=== PATIENT | male | born 1975 ===

== ENCOUNTER 2019-02-22 18:09 | Inpatient (IN) | payer OTHER ==
[~2019-02-22] VITALS: Ht 175.3 cm; Wt 86.2 kg
[2019-02-22] VITALS (7 sets, daily range): BP systolic 100–134; BP diastolic 54–75
--- NOTE | 2019-02-22 18:54 | ER.PDOC ---
General Chief Complaint: Abdomen Pain Stated Complaint: ABDOMINAL PAIN Time seen by MD: 18:46 Source: patient Exam Limitations: language barrier History of Present Illness Initial Comments c/o abdominal pain since 2pm today, denies n/v, has had 2 loose stools Timing/Duration: 4-6 hours Severity/Quality: moderate, sharpness, stabbing Radiation: RLQ Associated Symptoms: diarrhea (x2) Exacerbated by: nothing Relieved By: nothing Allergies: Coded Allergies: No Known Drug Allergies (Verified Allergy, Unknown, 02/22/19) Vital Signs First Vital Signs Date Time Temp Pulse Resp B/P (MAP) Pulse Ox O2 Delivery O2 Flow Rate FiO2 02/22/19 18:09 99.7 16 16 96 Room Air 02/22/19 18:32 134/75 (94) Last Vital Signs Date Time Temp Pulse Resp B/P (MAP) Pulse Ox O2 Delivery O2 Flow Rate FiO2 02/22/19 18:32 99.7 83 16 134/75 (94) 96 Room Air Past Medical History Medical History: no pertinent history Surgical History: no surgical history Social History Smoking: cigarettes, greater than 1 pack/day Alcohol Use: none Drug Use: none Constitutional: no symptoms reported EENTM: no symptoms reported Respiratory: no symptoms reported Cardiovascular: no symptoms reported Gastrointestinal: see HPI Musculoskeletal: no symptoms reported Skin: no symptoms reported All Other Systems: Reviewed and Negative Physical Exam General Appearance: Mild Distress (writhing on the bed, appears acutely uncomfortable) Respiratory: chest non-tender, lungs clear, normal breath sounds, no respiratory distress Cardiovascular: Regular Rate, Rhythm, No Edema Gastrointestinal: Hypoactive bowel sounds, Soft, Tenderness (diffusely TTP with worst pain at RLQ; no rebound) Extremities: Normal Range of Motion, Non-Tender Skin: Normal Color, Warm/Dry Lymphatic: No Adenopathy Results/Orders Results/Orders Orders - ROB BREWER DO Cbc With Auto Diff (02/22/19 18:52) Comprehensive Metabolic Panel (02/22/19 18:52) Amylase (02/22/19 18:52) Lipase (02/22/19 18:52) Helicobacter Pylori (02/22/19 18:52) Ct Abd/Pel With Iv Contrast (02/22/19 18:52) Urinalysis (02/22/19 18:52) Saline Lock (02/22/19 18:52) Npo Now (02/22/19 19:00) Ketorolac Tromethamine (Toradol) (02/22/19 19:00) Ketorolac Tromethamine (Toradol) (02/22/19 19:24) Insulin Regular, Human (Humulin R) (02/22/19 21:00) Vital Signs Date Time Temp Pulse Resp B/P (MAP) Pulse Ox O2 Delivery O2 Flow Rate FiO2 02/22/19 18:32 99.7 83 16 134/75 (94) 96 Room Air 02/22/19 18:09 99.7 83 16 02/22/19 18:09 99.7 16 16 96 Room Air Administered Medications Medications (Trade) Dose Ordered Sig/Tobias Route PRN Reason Start Time Stop Time Status Last Admin Dose Admin Ketorolac Tromethamine (Toradol) 30 mg STAT STAT IV 02/22/19 19:00 02/22/19 19:01 UNV 02/22/19 19:37 30 MG Laboratory Tests Test 02/22/19 19:00 02/22/19 20:40 White Blood Count 20.3 10^3/uL (4.5-11.0) H Red Blood Count 5.20 10^6/uL (4.50-5.90) Hemoglobin 16.2 g/dL (13.9-16.3) Hematocrit 47.4 % (37.0-53.0) Mean Corpuscular Volume 91.2 fL (78-100) Mean Corpuscular Hemoglobin 31.2 pg (26-34) Mean Corpuscular Hemoglobin Concent 34.2 g/dL (33-37) Red Cell Distribution Width 12.7 % (11.5-14.5) Platelet Count 371 10^3/uL (150-400) Mean Platelet Volume 9.8 fL (7.8-11.0) Neutrophils (%) (Auto) 82.5 % (41.0-85.0) Lymphocytes (%) (Auto) 11.4 % (24.0-44.0) L Monocytes (%) (Auto) 5.0 % (5.0-12.0) Neutrophils # (Auto) 16.8 10^3/uL (1.8-7.7) H Lymphocytes # (Auto) 2.3 10^3/uL (1.0-4.8) Monocytes # (Auto) 1.0 10^3/uL (0.3-0.8) H Absolute Immature Granulocyte (auto 0.05 10^3 u/L (0-2) Immature Granulocytes % 0.20 % (0.00-0.50) Eosinophils % 0.8 % (0.0-5.0) Basophils % 0.1 % (0.0-0.2) Basophils # 0.0 10^3/uL (0.0-0.1) Eosinophil Count 0.2 10^3/uL (0.0-0.2) Sodium Level 137 mmol/L (132-145) Potassium Level 3.5 mmol/L (3.6-5.2) L Chloride Level 100.0 mmol/L (96-109) Carbon Dioxide Level 27.4 mmol/L (20.0-32) Anion Gap 13.1 Blood Urea Nitrogen 11 mg/dL (7-18) Creatinine 0.87 mg/dL (0.59-1.40) Estimated GFR () 115.3 (>/=60) BUN/Creatinine Ratio 12.0 Glucose Level 349 mg/dL (70-110) H Calcium Level 9.4 mg/dL (8.4-10.5) Total Bilirubin 0.4 mg/dL (0.2-1.0) Aspartate Amino Transferase (AST) 21 U/L (0-35) Alanine Aminotransferase (ALT) 31 U/L (12-78) Alkaline Phosphatase 112 U/L (50-136) Total Protein 7.3 g/dL (6.4-8.2) Albumin 3.7 g/dL (3.4-5.0) Globulin 3.6 Amylase Level 26 U/L (25-115) Lipase 110 U/L (114-286) L Helicobacter pylori Screen NEGATIVE (NEGATIVE) Urine Collection Type UNKNOWN Urine Color YELLOW (YELLOW) Urine Appearance CLEAR (CLEAR) Urine Bilirubin NEGATIVE MG/DL (NEGATIVE) Urine Ketones 15 mg/dL (NEGATIVE) H Urine Specific [place] 1.010 (1.005-1.035) Urine pH 7 (5.0-6.0) Urine Protein NEGATIVE (NEGATIVE) Urine Urobilinogen NORMAL (NEGATIVE) Urine Nitrate NEGATIVE (NEGATAIVE) Urine Leukocyte Esterase NEGATIVE (NEGATIVE) Urine Blood NEGATIVE (NEGATIVE) Urine Glucose 1000 (NEGATIVE) H Progress Progress WBC 20, Gluc 349 EKG/XRAY/CT/US CT Comments: acute appendicitis without perforation or abscess Consult/PCP Time Consult/PCP Called: 21:36 Consult/PCP: Dr. Negro will admit; Dr. Garcia on his way in Course Vitals & review Data Vital Sign - Last 24 Hours 02/22/19 02/22/19 02/22/19 18:09 18:09 18:32 Temp 99.7 99.7 99.7 Pulse 16 83 83 Resp 16 16 16 B/P (MAP) 134/75 (94) Pulse Ox 96 96 O2 Delivery Room Air Room Air Laboratory Tests Test 02/22/19 19:00 02/22/19 20:40 White Blood Count 20.3 10^3/uL Red Blood Count 5.20 10^6/uL Hemoglobin 16.2 g/dL Hematocrit 47.4 % Mean Corpuscular Volume 91.2 fL Mean Corpuscular Hemoglobin 31.2 pg Mean Corpuscular Hemoglobin Concent 34.2 g/dL Red Cell Distribution Width 12.7 % Platelet Count 371 10^3/uL Mean Platelet Volume 9.8 fL Neutrophils (%) (Auto) 82.5 % Lymphocytes (%) (Auto) 11.4 % Monocytes (%) (Auto) 5.0 % Neutrophils # (Auto) 16.8 10^3/uL Lymphocytes # (Auto) 2.3 10^3/uL Monocytes # (Auto) 1.0 10^3/uL Absolute Immature Granulocyte (auto 0.05 10^3 u/L Immature Granulocytes % 0.20 % Eosinophils % 0.8 % Basophils % 0.1 % Basophils # 0.0 10^3/uL Eosinophil Count 0.2 10^3/uL Sodium Level 137 mmol/L Potassium Level 3.5 mmol/L Chloride Level 100.0 mmol/L Carbon Dioxide Level 27.4 mmol/L Anion Gap 13.1 Blood Urea Nitrogen 11 mg/dL Creatinine 0.87 mg/dL Estimated GFR () 115.3 BUN/Creatinine Ratio 12.0 Glucose Level 349 mg/dL Calcium Level 9.4 mg/dL Total Bilirubin 0.4 mg/dL Aspartate Amino Transf (AST/SGOT) 21 U/L Alanine Aminotransferase (ALT/SGPT) 31 U/L Alkaline Phosphatase 112 U/L Total Protein 7.3 g/dL Albumin 3.7 g/dL Globulin 3.6 Amylase Level 26 U/L Lipase 110 U/L Helicobacter pylori Screen NEGATIVE Urine Collection Type UNKNOWN Urine Color YELLOW Urine Appearance CLEAR Urine Bilirubin NEGATIVE MG/DL Urine Ketones 15 mg/dL Urine Specific [place] 1.010 Urine pH 7 Urine Protein NEGATIVE Urine Urobilinogen NORMAL Urine Nitrate NEGATIVE Urine Leukocyte Esterase NEGATIVE Urine Blood NEGATIVE Urine Glucose 1000 Current Medications Medications (Trade) Dose Ordered Sig/Tobias PRN Reason Start Time Stop Time Status Last Admin Ketorolac Tromethamine (Toradol) 30 mg STAT STAT 02/22/19 19:00 02/22/19 19:01 UNV 02/22/19 19:37 O2 Sat by Pulse Oximetry: 96 Departure Time of Disposition: 21:37 Disposition: ADMITTED INPATIENT Impression: Primary Impression: Acute appendicitis Condition: Stable Referrals: PCP,UNKNOWN (PCP) PRIMARY CARE PROVIDER Duration or Time Spent with Pa: 3 hours Problem Qualifiers Primary Impression: Acute appendicitis Acute appendicitis type: with localized peritonitis Appendicitis gangrene presence: without gangrene Appendicitis perforation presence: without perforation Appendicitis abscess presence: without abscess Qualified Codes: K35.30 - Acute appendicitis with localized peritonitis, without perforation or gangrene ROB BREWER DO Feb 22, 2019 18:54
[2019-02-22] MEDS ORDERED: TORADOL IV STA (19:00)
[2019-02-22 19:04] LABS: BASOPHIL % 0.1 % (0.0-0.2); EOSINOPHIL # 0.2 10^3/uL (0.0-0.2); EOSINOPHIL % 0.8 % (0.0-5.0); HEMOGLOBIN 16.2 g/dL (13.9-16.3); LYMPHOCYTES # 2.3 10^3/uL (1.0-4.8); LYMPHOCYTES % 11.4 % (24.0-44.0); MEAN CELL HGB 31.2 pg (26-34); MEAN CELL HGB CONCENTRATION 34.2 g/dL (33-37); MEAN CORP VOLUME 91.2 fL (78-100); MEAN PLATELET VOLUME 9.8 fL (7.8-11.0); NEUTROPHIL # 16.8 10^3/uL (1.8-7.7); NEUTROPHILS % 82.5 % (41.0-85.0); RED CELL DISTRIBUTION WIDTH 12.7 % (11.5-14.5); WHITE BLOOD CELL 20.3 10^3/uL (4.5-11.0)
[2019-02-22 19:22] LABS: CALCIUM 9.4 mg/dL (8.4-10.5); CARBON DIOXIDE 27.4 mmol/L (20.0-32)
[2019-02-22] MEDS ORDERED: TORADOL ONE (19:24)
[2019-02-22 20:46] LABS: BILIRUBIN,URINE NEGATIVE (NEGATIVE); UROBILINOGEN,URINE NORMAL (NEGATIVE)
[2019-02-22 20:48] LABS: APPEARANCE,URINE CLEAR (CLEAR); UA COLOR YELLOW (YELLOW)
[2019-02-22] MEDS ORDERED: HUMULIN R SQ ONE (21:00)
--- NOTE | 2019-02-22 21:29 | DIREP ---
PROCEDURE:CT ABDOMEN/PELVIS W/ CONTRAST COMPARISON:None. INDICATIONS:abdominal pain TECHNIQUE:Axial images were created through the abdomen and pelvis with non-ionic intravenous contrast material. Oral contrast was administered. Sagittal and coronal reconstructions were performed from source images. FINDINGS: LUNG BASES:Trace dependent ground-glass opacities. LIVER:Normal. No significant liver lesions are identified. BILIARY:Normal. No visible dilatation or calcification. PANCREAS:Normal. No lesion, fluid collection, ductal dilatation, or atrophy. SPLEEN:Normal. No enlargement or focal lesion. ADRENALS:Normal. No mass or enlargement. URINARY TRACT:Normal. No focal lesions or hydronephrosis. There is a small cyst in the left kidney. AORTA/VASCULAR:Normal. No aneurysm. RETROPERITONEUM:Normal. No mass or adenopathy. BOWEL/MESENTERY:The appendix is not thickened and measures 1 cm in diameter with mild stranding associated with it. There is no evidence of perforation or abscess formation. Small bowel is opacified with oral contrast and is normal caliber. Terminal ileum is normal. There is oral contrast seen within the right side of the colon. ABDOMINAL WALL:Normal. No mass or hernia. PELVIC ORGANS:Normal. No visible mass. Pelvic organs appropriate for patient age. BONES:Small posterior endplate osteophyte of L5 the does result in significant narrowing of the central canal at the L5-S1 level. OTHER:Negative. CONCLUSION: 1. Acute appendicitis. No evidence of perforation or abscess formation. 2. This report was called by telephone at 9:24 pm on February 22, 2019 to nurse Marilu who will notify Dr. Divine Gastelum Dictated by: Peter Knapp MD on 02/22/2019 at 09:22 PM
--- NOTE | 2019-02-22 21:33 | NUR ---
CONSULT DR BREWER ON PHONE WITH DR WAYNE REGARDING PATIENT.
[2019-02-22] MEDS ORDERED: NS 100ML 100 ML IV ONE (21:40)
--- NOTE | 2019-02-22 21:49 | NUR ---
DR WAYNE IN WITH PATIENT
[2019-02-22] MEDS: ZOSYN 3.375 GM 3.375 GM in NS 100ML 100 ML IV SCH (21:58)
[2019-02-22] MEDS ORDERED: NS 1000ML 1,000 ML IV ONE (22:00)
[2019-02-22] MEDS ORDERED: DEXTROSE 50%-WATER SYRINGE IV PRN (23:30)
[2019-02-22] MEDS ORDERED: MORPHINE SULFATE IV PRN (23:30)
[2019-02-22] MEDS ORDERED: LACTATED RINGERS 1,000 ML IV SCH (23:30)
[2019-02-22] MEDS: LACTATED RINGERS 1,000 ML IV SCH (23:37)
[2019-02-22] MEDS: LOVENOX SQ SCH (23:38)
[2019-02-22] MEDS: PEPCID IV SCH (23:38)
[2019-02-23] VITALS (9 sets, daily range): BP systolic 93–117; BP diastolic 27–75
--- NOTE | 2019-02-23 03:50 | PCM.EKG ---
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
[2019-02-23 05:15] LABS: BASOPHIL % 0.1 % (0.0-0.2); EOSINOPHIL # 0.1 10^3/uL (0.0-0.2); EOSINOPHIL % 0.7 % (0.0-5.0); HEMOGLOBIN 15.1 g/dL (13.9-16.3); LYMPHOCYTES # 3.5 10^3/uL (1.0-4.8); LYMPHOCYTES % 18.7 % (24.0-44.0); MEAN CELL HGB 31.1 pg (26-34); MEAN CORP VOLUME 91.4 fL (78-100); MEAN PLATELET VOLUME 9.9 fL (7.8-11.0); MONOCYTES # 1.3 10^3/uL (0.3-0.8); NEUTROPHIL # 13.9 10^3/uL (1.8-7.7); NEUTROPHILS % 73.2 % (41.0-85.0); RED CELL DISTRIBUTION WIDTH 12.8 % (11.5-14.5); WHITE BLOOD CELL 18.9 10^3/uL (4.5-11.0)
--- NOTE | 2019-02-23 05:19 | CNH ---
DATE OF CONSULTATION: 02/22/2019 CHIEF COMPLAINT: Appendicitis. HISTORY OF PRESENT ILLNESS: This is a 43-year-old male who was brought to our facility from an outside EMS service. Per discussion with the patient and then subsequent confirmation using the language line service, he had onset of abdominal pain earlier today. No nausea or vomiting. He did have chills at home. The pain was burning and crampy and became so severe he could not tolerate it. In the Emergency Room, he was evaluated and had an elevated white count. CT was positive, and he had elevated glucose. 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 Only home meds he takes is [id number] multivitamin. PAST MEDICAL HISTORY: He denies. PAST SURGICAL HISTORY: Denies. ALLERGIES: No known drug allergies. SOCIAL HISTORY: Positive for smoked tobacco for 20 years, positive for alcohol consumption. Formerly denies illicit drug use. FAMILY HISTORY: Essentially noncontributory. REVIEW OF SYSTEMS: CONSTITUTIONAL: Seasonal allergies: He denies any runny nose or cough. CARDIOVASCULAR: He denies any chest pain, though he does admit to occasional shortness of breath with activity. PULMONARY: He denies cough and does have shortness of breath with exertion on occasion, but not frequently. ABDOMEN: As per HPI. NEUROLOGIC: Denies any seizures or blackouts, though he does admit to some occasional dizziness that is intermittent and not frequent. PHYSICAL EXAMINATION: VITAL SIGNS: Stated height per patient is 5 feet 9 inches, stated weight is 180 pounds, pulse per chart is 88, the blood pressure while I was in the room is 115/69, his temperature noted in the ER was 99.7 and repeat was 99.0, respiratory rate is 16. HEENT: Normocephalic, atraumatic with pink mucous membranes. NECK: Supple and soft. Trachea is midline. GENERAL: This is a healthy, pleasant, alert and oriented, no acute distress. HEART: Has regular rate and rhythm. LUNGS: Clear to auscultation bilaterally. ABDOMEN: The bowel sounds are positive. He has noticeable tenderness in the right lower quadrant. VASCULAR: He has positive pulses x 4. NEUROLOGIC: No focal findings. Cranial nerves 2-12 are grossly intact. SKIN AND INTEGUMENTARY: Warm and dry. LABORATORY STUDIES: White count 20.3, hemoglobin 16.2, platelet count 371. Chemistry shows BUN of 11, creatinine of 0.87. Blood sugar is 349. Lipase is 110, potassium is 3.5. PT is 9.3, PTT is 24.4. Serology, H. pylori is negative. Urinalysis shows specific gravity 1.010 with 1000 of glucose on confirmatory strip. IMAGING STUDIES: CT scan does show changes consistent with acute appendicitis. There were no signs of perforation on the CAT scan. SURGICAL ASSESSMENT: 1. Acute appendicitis. 2. Hyperglycemia without previous diagnosis of diabetes. 3. Clinical dehydration. PLAN: 1. The patient is seen and examined. The chart is reviewed. 2. Initially, I consider taking the patient to surgery; however, with elevated blood glucose and white count, it seems amenable to aggressively hydrate him, give the hospitalist the time to correct his biochemical abnormalities with the intention of improving long-term outcome. The patient has received IV fluid, insulin and IV antibiotics. 3. However, after some discussion with the patient and utilization of the language line service dish technician #[id number], we subsequently involved the patient's as a third alliance party to the call. There was a prolonged discussion by the patient and his . They have concerns regarding the financial implications of surgery, and I have preferred delay in consenting to operation at this point, however, they have agreed for him to stay the night, get the fluids in the antibiotics and see how he feels in the morning, but they are very clear and they verbalized that they would like to talk to someone from the business office prior to surgery. I have explained to the patient and his using the language line service that they cannot be made to leave. They have the right to stay or leave at their discretion. They have accepted complications, and I recommend that he stay and have surgical intervention in an effort to improve his healing and decrease the length of recovery time. Anthony Garcia DO DR: PAT/kavya JOB# [id number]
[2019-02-23] MEDS ORDERED: NS 100ML 100 ML IV ONE (05:48)
[2019-02-23] MEDS: LACTATED RINGERS 1,000 ML IV SCH ×3 (05:50→21:15)
[2019-02-23] MEDS: ZOSYN 3.375 GM 3.375 GM in NS 100ML 100 ML IV SCH ×3 (05:55→17:50)
[2019-02-23 05:59] LABS: CALCIUM 8.3 mg/dL (8.4-10.5); CARBON DIOXIDE 26.1 mmol/L (20.0-32)
--- NOTE | 2019-02-23 06:00 | NUR ---
pt wiped with surgical wipes complete linen change.
[2019-02-23] MEDS ORDERED: EXPAREL 266 MG/20 ML VIAL IJ ONE (07:00)
[2019-02-23] MEDS ORDERED: SODIUM CHLORIDE IR ONE (07:02)
[2019-02-23] MEDS ORDERED: GENTAMICIN 80 MG/NS 100 ML PB 100 ML IV ONE (07:02)
[2019-02-23] MEDS ORDERED: SODIUM CHLORIDE IRR BAG 1,000 ML ONE (07:02)
[2019-02-23] MEDS ORDERED: ZEMURON IV ONE (07:03)
[2019-02-23] MEDS ORDERED: LIDOCAINE 2% VIAL ONE (07:03)
[2019-02-23] MEDS ORDERED: QUELICIN ONE (07:03)
[2019-02-23] MEDS ORDERED: SUBLIMAZE ONE (07:04)
[2019-02-23] MEDS ORDERED: LACTATED RINGERS 1,000 ML ONE (07:04)
[2019-02-23] MEDS ORDERED: DIPRIVAN IV ONE (07:04)
[2019-02-23] MEDS ORDERED: MIDAZOLAM HCL 1 MG/ML VIAL ONE (07:05)
[2019-02-23] MEDS ORDERED: TORADOL ONE (07:05)
[2019-02-23] MEDS ORDERED: DECADRON ONE ×2 (07:05→07:21)
[2019-02-23] MEDS ORDERED: ZOFRAN 4 MG/2 ML VIAL ONE (07:05)
[2019-02-23] MEDS: HUMULIN R SQ SCH ×4 (07:30→21:06)
--- NOTE | 2019-02-23 07:40 | NUR ---
OFF THE FLOOR FOR OR, SBAR GIVEN TO OR NURSES.
[2019-02-23] MEDS ORDERED: KCL 20MEQ/100ML 100 ML IV STA (07:45)
[2019-02-23] MEDS ORDERED: KLOR-CON 10 PO SCH (10:30)
--- NOTE | 2019-02-23 10:30 | NUR ---
DISCHARGE PLAN PATIENT WAS OFF UNIT FOR SURGERY. CM CONTACT INFORMATION AND PCP LIST IS LEFT AT BEDSIDE.
[2019-02-23] MEDS ORDERED: PHENERGAN IV PRN (11:00)
[2019-02-23] MEDS ORDERED: VENTOLIN IH PRN (11:00)
[2019-02-23] MEDS ORDERED: ZOFRAN 4 MG/2 ML VIAL IV PRN (11:00)
[2019-02-23] MEDS ORDERED: SUBLIMAZE IV PRN (11:00)
--- NOTE | 2019-02-23 11:05 | OPH ---
DATE OF SURGERY: PREOPERATIVE DIAGNOSIS: Acute appendicitis. POSTOPERATIVE DIAGNOSIS: Acute appendicitis. SURGEON: Anthony Garcia DO MANUFACTURING SUPERVISOR: OR staff. ANESTHESIA: General by Vitaliy Nino CRNA plus block provided intraoperatively. PROCEDURES PERFORMED: Laparoscopic appendectomy. SPECIMENS: Appendix to path. ESTIMATED BLOOD LOSS: 11 mL. COUNTS: At the completion of the case, the counts were correct per OR staff. DESCRIPTION OF PROCEDURE: The patient is a 43-year-old male, known from previous evaluation. Prior to procedure, informed consent was obtained. At time of procedure, he was taken to the operative suite and placed in supine position. After time-out was completed, general anesthesia was obtained. Bilateral QL block was provided by the Department of Anesthesia. Hodges catheter was inserted by the nursing service and his abdomen was prepped and draped. Supraumbilical incision was created and 5 mm trocar was introduced into the abdomen with Endo camera visualization. Once in the abdomen, pneumoperitoneum was induced with 14 mmHg. Next, under camera visualization, two 5 mm trocars were placed in the left lower quadrant. Attention was directed towards the right lower quadrant. There was noted to be some inflamed peritoneum in the area. The periappendiceal fat was noted to be inflamed as well. The appendix was lifted and the mesoappendix divided using Harmonic scalpel down to the base. The base of the appendix at the cecum appears to be relatively healthy. With good exposure, 2 PDS Endoloops were placed on the base of the appendix at level of the cecum and secured. The tie loop was divided and the appendix was divided. It was removed through the supraumbilical trocar site in EndoCatch bag. Trocars were reinserted. Attention was directed towards the right lower quadrant. There were no signs of bleeding. There was some purulent fluid identified in the right lower quadrant and pelvis which was suctioned. The area was copiously irrigated and the irrigation and suction as well. There were noted to be some inflammatory adhesions associated with the omentum and the gallbladder on inspection and a photograph was obtained. After the pelvis was suctioned and the right lower quadrant was suctioned, a drain was passed in through the inferior trocar site, placed through the pelvis to the right lower quadrant. Secured to point of exit with a nylon suture and closure was pursued. Under camera visualization, remaining trocar sites were removed. The fascia on the supraumbilical incision was closed with 0 Vicryl suture. Two skin incisions were closed with 4-0 Monocryl. The patient was cleaned. Steri-Strips and dressings were applied. Drapes were removed. The appendix was grossly examined and noted to have some inflammatory changes and sent to pathology. Anthony Garcia DO DR: PAT/kavya JOB# [id number] CC: Dillon Negro M.D.
--- NOTE | 2019-02-23 11:25 | NUR ---
BACK TO FLOOR Pt BACK TO FLOOR IN ROOM 303 FROM OR IN HOSPITAL BED ACCOMPANIED BY OR NURSE KATERINE BERNARD AND HIS . SPECIAL VS INITIATED, OFFERED FLUIDS, AND SNACKS TO Pt, Pt TOLERATED WELL.
[2019-02-23] MEDS ORDERED: POTASSIUM CHLORIDE PO STA (11:45)
--- NOTE | 2019-02-23 12:11 | PCM.HP ---
History of Present Illness Reason for Visit: abdominal pain, fever, chills History of Present Illness Patient is a 43 M with no PMH who presents with fever, abdominal hernandez, and chills. Pain was right abdominal pain that was very sharp. Patient brought in by EMS and in ER was found to have acute appendicitis. Patient also had hyperglycemia and patient was started on IV abx, IVF, made NPO and had sugars improved overnight prior to going to OR. Patient underwent laparoscopic appendectomy. Patient is back form OR and I have evaluated. at bedside with patient. Language line used for communication. Patient feels better following surgery. He is tolerating CLD and pain is controlled. Labs, imaging reviewed. Patient denies chest pain, shortness of breath, or any other concerning symptoms. I discussed plan of care with patient/ and they verbalized understanding/agreement. Past Surgical History: Appendectomy Past Social History Smoke: Quit Alcohol: occassional Drugs: None Lives: with Family Travel Hx EBOLA RISK:Travel to/contact w: No Is pt experiencing any Ebola s: No Review of Systems Constitutional: Fever, Chills Eyes: No: Conjunctivae inflammation, Eyelid inflammation ENT: No: Nose discharge, Nose congestion Respiratory: No: Cough, Shortness of breath, SOB with excertion, Wheezing Cardiovascular: No: Chest Pain, Palpitations, Edema Gastrointestinal: Abdominal Pain; No: Nausea, Vomiting Genitourinary: No Incontinence, No Retention Musculoskeletal: No: neck pain, back pain Skin: No: Rash, Lesions, Jaundice, Bruising Neurological: No: Weakness, Numbness, Incoordination, Change in speech, Confusion, Seizures Allergies: Coded Allergies: No Known Drug Allergies (Verified Allergy, Unknown, 02/22/19) No Active Prescriptions or Reported Meds VTE VTE Risk Total Score: 1 VTE Risk Score VTE Risk: Score 0-1 = Low Risk (Aggressive mobilization; early ambulation; no VTE prophylaxis required) Score 2: Moderate Risk (Intermittent/Pneumatic Compression Device OR Lovenox/Heparin/Coumadin) Score 3-4: High Risk (Intermittent/Pneumatic Compression Device AND Lovenox/Heparin/Coumadin) Score > or =5: Highest Risk (Intermittent/Pneumatic Compression Device AND Lovenox/Heparin/Coumadin) VTE VTE Present on Admission: No Currently receiving anticoagul: No VTE Risk Total Score: 1 Exam Vital Signs Vital Signs Date Time Temp Pulse Resp B/P (MAP) Pulse Ox O2 Delivery O2 Flow Rate FiO2 02/23/19 11:08 98 58 16 107/66 (80) 28 Nasal Canula 3 General Appearance: Alert, Oriented X3, Cooperative, No acute distress, Other (language barrier, used language line for communication) HEENT: Atraumatic, PERRLA, EOMI, Mucous membr. moist/pink Respiratory: Clear to auscultation, Normal air movement Cardiovascular: Normal S1, Normal S2, No murmurs Abdominal: Normal bowel sounds, Soft Extremities: No edema, Normal pulses, No tenderness/swelling Skin: No rash, No breakdown, No lesions Neuro: Normal speech, Strength at 5/5 X4 ext, Normal tone, Sensation intact, Cranial nerves 3-12 NL Psych/Mental Status: Mental status NL, Mood NL Assessment/Plan Assessment/Plan Assessment/Plan Patient is a 43 M with no PMH who presents with fever, abdominal hernandez, and chills. Pain was right abdominal pain that was very sharp. Plan 1. Acute Appendicitis: s/p Laparoscopic Appendectomy this AM. Cont IV abx. CHRISTOPHER in place, monitor output. 2. Hyperglycemia: pending HgA1C. Cont SSI 3. PPx: Pepcid, Lovenox 4. Hypokalemia: replete PO, increase diet today. LIONEL BANERJEE MD Feb 23, 2019 12:11
[2019-02-23] MEDS: PEPCID IV SCH ×2 (12:21→21:02)
--- NOTE | 2019-02-23 17:30 | NUR ---
SPECIAL VS COMPLETED.
[2019-02-23] MEDS: LOVENOX SQ SCH (21:02)
[2019-02-24] MEDS: ZOSYN 3.375 GM 3.375 GM in NS 100ML 100 ML IV SCH ×4 (00:03→18:56)
[2019-02-24 00:30] VITALS: BP 101/44
[2019-02-24] MEDS: LACTATED RINGERS 1,000 ML IV SCH ×6 (03:30→22:31)
--- NOTE | 2019-02-24 03:30 | NUR ---
MEDICATION PATIENT AND REFUSED LR PATIENT STATED 'I'VE HAD ENOUGH". I EXPLAINED THE DR ORDERED IT TO KEEP HIM HYDRATED AND ALSO TO KEEP THE IV LINE OPENED AND WORKING TO RECEIVE HIS ANTIBIOTICS. PATIENT AND BOTH EXPRESSED THEY DID NOT WANT IT HUNG.
[2019-02-24 04:43] VITALS: BP 95/50
[2019-02-24 05:36] LABS: HEMOGLOBIN 14.4 g/dL (13.9-16.3); LYMPHOCYTES # 2.3 10^3/uL (1.0-4.8); LYMPHOCYTES % 10.3 % (24.0-44.0); MEAN CELL HGB 31.1 pg (26-34); MEAN CELL HGB CONCENTRATION 33.4 g/dL (33-37); MEAN CORP VOLUME 93.1 fL (78-100); MEAN PLATELET VOLUME 10.2 fL (7.8-11.0); MONOCYTES # 1.2 10^3/uL (0.3-0.8); MONOCYTES % 5.5 % (5.0-12.0); NEUTROPHIL # 18.7 10^3/uL (1.8-7.7); NEUTROPHILS % 83.9 % (41.0-85.0); RED CELL DISTRIBUTION WIDTH 13.1 % (11.5-14.5); WHITE BLOOD CELL 22.3 10^3/uL (4.5-11.0)
[2019-02-24 05:59] LABS: CALCIUM 8.4 mg/dL (8.4-10.5); CARBON DIOXIDE 24.6 mmol/L (20.0-32)
--- NOTE | 2019-02-24 07:16 | NUR ---
Post op pain visit POD #1 after Lap Appy and QL block. Pt is lying in bed with at bedside. Pt states pain block is still effective. Hasn't had any pain since surgery. Ambulated yesterday. No complications noted. Pt is very pleased with anesthetic and pain block.
[2019-02-24 07:20] VITALS: BP 105/60
[2019-02-24] MEDS: HUMULIN R SQ SCH ×4 (07:35→21:39)
[2019-02-24] MEDS: PEPCID IV SCH ×2 (08:25→21:34)
--- NOTE | 2019-02-24 08:46 | NUR ---
REFUSAL Pt REFUSED LR FLUID STATES " THIS IS TOO MUCH" NOTIFIED DR WAYNE.
--- NOTE | 2019-02-24 09:17 | NUR ---
REFUSAL Pt REFUSED LR FLUID STATES " THIS IS TOO MUCH" NOTIFIED DR ANDERSEN.
--- NOTE | 2019-02-24 10:04 | PRM.PN ---
Subjective Subjective Date: Feb 24, 2019 Time: 09:45 Subjective Patient was refusing IVF this AM. Labs reviewed and his white count is up. I discussed through language line and informed patient regarding treatment and plan of care. He understands and will be compliant with care. VTE VTE Risk Total Score: 1 VTE Risk Score VTE Risk: Score 0-1 = Low Risk (Aggressive mobilization; early ambulation; no VTE prophylaxis required) Score 2: Moderate Risk (Intermittent/Pneumatic Compression Device OR Lovenox/Heparin/Coumadin) Score 3-4: High Risk (Intermittent/Pneumatic Compression Device AND Lovenox/Heparin/Coumadin) Score > or =5: Highest Risk (Intermittent/Pneumatic Compression Device AND Lovenox/Heparin/Coumadin) Review of Systems Allergies: Coded Allergies: No Known Drug Allergies (Verified Allergy, Unknown, 02/22/19) No Active Prescriptions or Reported Meds Objective Vitals and I/O Vital Sign - Last 24 Hours 02/23/19 02/23/19 02/23/19 02/23/19 10:28 10:28 10:37 10:48 Temp 98.8 97.9 98 Pulse 66 57 59 Resp 16 18 24 B/P (MAP) 114/27 (56) 117/72 (87) 106/75 (85) Pulse Ox 100 100 99 O2 Delivery Non-Rebreather Non-Rebreather Nasal [place] O2 Flow Rate 10 10 5 3 02/23/19 02/23/19 02/23/19 02/23/19 10:57 11:08 13:18 13:19 Temp 97.6 98 Pulse 62 58 80 Resp 17 16 16 16 B/P (MAP) 113/71 (85) 107/66 (80) Pulse Ox 95 28 93 93 O2 Delivery Room Air Nasal [place] Nasal Cannula O2 Flow Rate 3 FiO2 21 02/23/19 02/23/19 02/23/19 02/23/19 16:00 18:35 19:17 23:39 Temp 98.6 98.8 Pulse 61 61 86 Resp 18 18 17 B/P (MAP) 116/66 (83) 93/57 (69) Pulse Ox 20 93 92 O2 Delivery Room Air Room Air Room Air Room Air FiO2 21 02/24/19 02/24/19 02/24/19 02/24/19 00:30 04:43 07:20 07:20 Temp 98.1 98.0 98.8 Pulse 65 62 58 Resp 16 18 18 B/P (MAP) 101/44 (63) 95/50 (65) 105/60 (75) Pulse Ox 94 91 97 O2 Delivery Room Air Room Air Room Air Room Air 02/24/19 08:23 Pulse 59 Resp 18 Pulse Ox 97 O2 Delivery Room Air Intake and Output 02/23/19 02/23/19 02/24/19 15:00 23:00 07:00 Intake Total 3840 ml 500 ml 650 ml Output Total 1640 ml 520 ml 860 ml Balance 2200 ml -20 ml -210 ml General: Alert, Oriented X3, Cooperative, No acute distress, Other (language barrier, used language line for communication) HEENT: Atraumatic, PERRLA, EOMI, Mucous membr. moist/pink Neck: Supple, No JVD Lungs: Clear to auscultation, Normal air movement Heart: Normal S1, Normal S2, No murmurs Abdomen: Normal bowel sounds, Soft Extremities: No edema, Normal pulses, No tenderness/swelling Skin: No rashes, No breakdown, No significant lesion Neuro: Normal speech, Strength at 5/5 X4 ext, Normal tone, Sensation intact, Cranial nerves 3-12 NL Psych/Mental Status: Mental status NL, Mood NL All Results(Lab/Rad) Laboratory Tests Test 02/23/19 10:31 02/23/19 11:47 02/23/19 16:41 02/23/19 19:41 Bedside Glucose 191 220 283 321 Test 02/24/19 04:55 White Blood Count 22.3 10^3/uL Red Blood Count 4.63 10^6/uL Hemoglobin 14.4 g/dL Hematocrit 43.1 % Mean Corpuscular Volume 93.1 fL Mean Corpuscular Hemoglobin 31.1 pg Mean Corpuscular Hemoglobin Concent 33.4 g/dL Red Cell Distribution Width 13.1 % Platelet Count 343 10^3/uL Mean Platelet Volume 10.2 fL Neutrophils (%) (Auto) 83.9 % Lymphocytes (%) (Auto) 10.3 % Monocytes (%) (Auto) 5.5 % Neutrophils # (Auto) 18.7 10^3/uL Lymphocytes # (Auto) 2.3 10^3/uL Monocytes # (Auto) 1.2 10^3/uL Absolute Immature Granulocyte (auto 0.07 10^3 u/L Immature Granulocytes % 0.30 % Eosinophils % 0.0 % Basophils % 0.0 % Basophils # 0.0 10^3/uL Eosinophil Count 0.0 10^3/uL Sodium Level 137 mmol/L Potassium Level 3.5 mmol/L Chloride Level 104.0 mmol/L Carbon Dioxide Level 24.6 mmol/L Anion Gap 11.9 Blood Urea Nitrogen 10 mg/dL Creatinine 0.74 mg/dL Estimated GFR () 139.0 BUN/Creatinine Ratio 13.0 Glucose Level 272 mg/dL Hemoglobin A1c 11.7 % Calcium Level 8.4 mg/dL Total Bilirubin 0.5 mg/dL Aspartate Amino Transf (AST/SGOT) 12 U/L Alanine Aminotransferase (ALT/SGPT) 25 U/L Alkaline Phosphatase 90 U/L Total Protein 6.0 g/dL Albumin 2.7 g/dL Globulin 3.3 Current Medications Medications (Trade) Dose Ordered Sig/Tobias Route PRN Reason Start Time Stop Time Status Last Admin Dose Admin Ketorolac Tromethamine (Toradol) 30 mg STAT STAT IV 02/22/19 19:00 02/22/19 22:28 DC 02/22/19 19:37 Ketorolac Tromethamine (Toradol) 30 mg STK-MED ONCE .ROUTE 02/22/19 19:24 02/22/19 19:25 DC Insulin Human Regular (Humulin R) 10 unit STAT ONCE SQ 02/22/19 21:00 02/22/19 22:27 DC 02/22/19 21:45 Piperacillin Sod/ Tazobactam Sod 3.375 gm/Sodium Chloride 100 ml @ 100 mls/hr Q6 IV 02/23/19 00:00 03/25/19 00:00 02/24/19 06:04 Sodium Chloride 1,000 ml @ 0 mls/hr Q0M ONCE IV 02/22/19 22:00 02/22/19 22:27 DC 02/22/19 21:46 Sodium Chloride 100 ml @ ud STK-MED ONCE IV 02/22/19 21:40 02/22/19 21:41 DC Enoxaparin Sodium (Lovenox) 40 mg HS SQ 02/22/19 23:00 03/24/19 22:59 02/23/19 21:02 Famotidine (Pepcid) 20 mg BID IV 02/22/19 23:00 03/24/19 22:59 02/24/19 08:25 Insulin Human Regular (Humulin R) Give 30 minutes before meal ACHS SQ 02/23/19 07:30 03/25/19 07:29 02/24/19 07:35 Dextrose (Dextrose 50%-Water Syringe) 25 ml STAT PRN IV HYPOGLYCEMIA 02/22/19 23:30 03/24/19 23:29 Morphine Sulfate (Morphine Sulfate) 2 mg Q4H PRN IV PAIN 4 - 6 02/22/19 23:30 03/24/19 23:29 02/22/19 23:44 Sodium Chloride 100 ml @ ud STK-MED ONCE IV 02/23/19 05:48 02/23/19 05:50 DC Gentamicin Sulfate/Sodium Chloride 100 ml @ ud STK-MED ONCE IV 02/23/19 07:02 02/23/19 07:04 DC Sodium Chloride 1,000 ml @ ud STK-MED ONCE .ROUTE 02/23/19 07:02 02/23/19 07:04 DC Sodium Chloride (Sodium Chloride) 1,000 ml STK-MED ONCE IR 02/23/19 07:02 02/23/19 07:04 DC Lidocaine HCl (Lidocaine 2% Vial) 500 mg STK-MED ONCE .ROUTE 02/23/19 07:03 02/23/19 07:04 DC Rocuronium [place] (Zemuron) 100 mg STK-MED ONCE IV 02/23/19 07:03 02/23/19 07:04 DC Succinylcholine Chloride (Quelicin) 200 mg STK-MED ONCE .ROUTE 02/23/19 07:03 02/23/19 07:04 DC Fentanyl Citrate (Sublimaze) 100 mcg STK-MED ONCE .ROUTE 02/23/19 07:04 02/23/19 07:06 DC Propofol (Diprivan) 200 mg STK-MED ONCE IV 02/23/19 07:04 02/23/19 07:06 DC Ondansetron HCl (Zofran 4 Mg/2 ml Vial) 4 mg STK-MED ONCE .ROUTE 02/23/19 07:05 02/23/19 07:06 DC Ketorolac Tromethamine (Toradol) 15 mg STK-MED ONCE .ROUTE 02/23/19 07:05 02/23/19 07:06 DC Potassium Chloride 100 ml @ 50 mls/hr OT STAT IV 02/23/19 07:45 02/23/19 09:44 DC Potassium Chloride (Klor-Con 10) 40 meq STAT PO 02/23/19 10:30 03/25/19 10:29 Fentanyl Citrate (Sublimaze) 12.5 mcg Q5MIN PRN IV PAIN 02/23/19 11:00 02/23/19 19:56 DC Promethazine HCl (Phenergan) 6.25 mg PRN PRN IV NAUSEA / VOMITING 02/23/19 11:00 02/23/19 19:56 DC Albuterol Sulfate (Ventolin) 2.5 mg OT PRN IH WHEEZING 02/23/19 11:00 02/23/19 19:56 DC Ondansetron HCl (Zofran 4 Mg/2 ml Vial) 4 mg Q4H PRN IV NAUSEA / VOMITING 02/23/19 11:00 03/25/19 10:59 Potassium Chloride (Potassium Chloride) 40 meq STAT STAT PO 02/23/19 11:45 02/23/19 11:48 DC 02/23/19 12:20 Course Sepsis Screening Results: Posi: NEGATIVE Sepsis Qualifier/Stage: NO DEFINITE RISK Duration or Total Time Spent w: 3 hours Vitals & review Data Vital Sign - Last 24 Hours 02/22/19 02/22/19 02/22/19 18:09 18:09 18:32 Temp 99.7 99.7 99.7 Pulse 16 83 83 Resp 16 16 16 B/P (MAP) 134/75 (94) Pulse Ox 96 96 O2 Delivery Room Air Room Air Laboratory Tests Test 02/22/19 19:00 02/22/19 20:40 White Blood Count 20.3 10^3/uL Red Blood Count 5.20 10^6/uL Hemoglobin 16.2 g/dL Hematocrit 47.4 % Mean Corpuscular Volume 91.2 fL Mean Corpuscular Hemoglobin 31.2 pg Mean Corpuscular Hemoglobin Concent 34.2 g/dL Red Cell Distribution Width 12.7 % Platelet Count 371 10^3/uL Mean Platelet Volume 9.8 fL Neutrophils (%) (Auto) 82.5 % Lymphocytes (%) (Auto) 11.4 % Monocytes (%) (Auto) 5.0 % Neutrophils # (Auto) 16.8 10^3/uL Lymphocytes # (Auto) 2.3 10^3/uL Monocytes # (Auto) 1.0 10^3/uL Absolute Immature Granulocyte (auto 0.05 10^3 u/L Immature Granulocytes % 0.20 % Eosinophils % 0.8 % Basophils % 0.1 % Basophils # 0.0 10^3/uL Eosinophil Count 0.2 10^3/uL Sodium Level 137 mmol/L Potassium Level 3.5 mmol/L Chloride Level 100.0 mmol/L Carbon Dioxide Level 27.4 mmol/L Anion Gap 13.1 Blood Urea Nitrogen 11 mg/dL Creatinine 0.87 mg/dL Estimated GFR () 115.3 BUN/Creatinine Ratio 12.0 Glucose Level 349 mg/dL Calcium Level 9.4 mg/dL Total Bilirubin 0.4 mg/dL Aspartate Amino Transf (AST/SGOT) 21 U/L Alanine Aminotransferase (ALT/SGPT) 31 U/L Alkaline Phosphatase 112 U/L Total Protein 7.3 g/dL Albumin 3.7 g/dL Globulin 3.6 Amylase Level 26 U/L Lipase 110 U/L Helicobacter pylori Screen NEGATIVE Urine Collection Type UNKNOWN Urine Color YELLOW Urine Appearance CLEAR Urine Bilirubin NEGATIVE MG/DL Urine Ketones 15 mg/dL Urine Specific [place] 1.010 Urine pH 7 Urine Protein NEGATIVE Urine Urobilinogen NORMAL Urine Nitrate NEGATIVE Urine Leukocyte Esterase NEGATIVE Urine Blood NEGATIVE Urine Glucose 1000 Current Medications Medications (Trade) Dose Ordered Sig/Tobias PRN Reason Start Time Stop Time Status Last Admin Ketorolac Tromethamine (Toradol) 30 mg STAT STAT 02/22/19 19:00 02/22/19 19:01 UNV 02/22/19 19:37 LEVEL 1 SEPSIS INFECTION CRITE: ABX Therapy, Abdominal Pain, Recent Invasive Procedure LEVEL 2-SIRS (LIST ALL THAT AP: [id number] Cardiovascular Evidence: Not Assessed or None Hematologic Evidence: None/Not assessed Hepatic Evidence: None/Not assessed Metabolic Evidence: None/Not assessed Neurological Evidence: None/Not assessed Respiratory Evidence: None/Not assessed Renal Evidence: None/Not assessed O2 Sat by Pulse Oximetry: 97 Oxygen Flow Rate: 3 Assessment/Plan Assessment/Plan Assessment/Plan 1. Acute Appendicitis: s/p Lap Lazaro. Cont CHRISTOPHER drain, cont IV abx. Surgery managing. Patient tolerated diet and is ambulating. Cont IS. 2. DM with Hyperglycemia: A1c greater than 10. Will d/c on Oral Hypoglycemics. 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 I counseled patient to avoid this. 3. PPx: Pepcid, Lovenox 4. Hypokalemia: low normal today. Check metabolic panel prior to d/c. Patient is eating well. LIONEL BANERJEE MD Feb 24, 2019 10:04
--- NOTE | 2019-02-24 11:00 | NUR ---
DISCHARGE UPDATE CM FOLLOWED UP WITH PATIENT BY UTILIZING THE BLUE PHONE WITH A [employer] CO[employer] # [id number]. LIVES AT HOME WITH SPOUSE IN [place]. INDEPENDENT OF ADLS. WORKS DAILY AT [employer] IN [place]. DOES NOT CURRENTLY HAVE A PCP. CM PROVIDED A PCP LIST. CM EDUCATED THE IMPORTANCE OF HAVING A PCP BECAUSE OF THE NEW DIAGNOSIS OF DMII. ALSO VERBAL EDUCATION ON THE EFFECTS OF DMII IF BLOOD SUGARS ARE NOT CONTROLLED INCLUDING AFFECTS EYES, KIDNEYS, HEART, CIRCULATION TO EXTREMITIES. CM EDUCATED PATIENT ON DM II INCLUDING NORMAL RANGE OF BLOOD SUGAR, BELOW 70 IS LOW BS AND DRINK ORANGE JUICE OR HARD CANDY, IF BS IS ABOVE 250 GREATER THAN 2 DAYS CALL PCP, CHECK BLOOD SUGAR AT LEAST 2 TIMES DAILY IN THE MORNING BEFORE EATING OR DRINKING AND AT NIGHT BEFORE BED AND WRITE THEM DOWN. PATIENT VERBALIZED UNDERSTANDING. CM NOTIFIED CHARGE NURSE HAS ABILITY TO AFFORD MEDICATIONS UPON DISCHARGE. HE WOULD LIKE HIS MEDICATIONS CALLED INTO [facility] IN [place] ON [facility] AND [facility]. CM PROVIDED PATIENT WITH A GLUCOMETER. DENIES FURTHER NEED FOR DME OR HOME OXYGEN. DISCHARGE PLAN IS TO DISCHARGE HOME WITH SPOUSE AND CONTINUE SELF CARE. CM WILL CONTINUE TO FOLLOW FOR DISCHARGE NEEDS. CM NOTIFIED OSCAR RN AND RONAK SHEPHERD TIRE FABRICATOR NURSE OF ABOVE.
[2019-02-24 11:30] VITALS: BP 97/64
--- NOTE | 2019-02-24 18:20 | NUR ---
REPORT RECEIVED REPORT AND ASSUMED CARE
--- NOTE | 2019-02-24 18:25 | NUR ---
REPORT RECEIVED REPORT AND ASSUMED CARE AT THIS TIME
[2019-02-24 20:59] VITALS: BP 109/64
[2019-02-24] MEDS: LOVENOX SQ SCH (21:35)
[2019-02-25] MEDS: ZOSYN 3.375 GM 3.375 GM in NS 100ML 100 ML IV SCH ×4 (00:07→19:03)
[2019-02-25 00:10] VITALS: BP 115/72
--- NOTE | 2019-02-25 00:11 | PNH ---
DATE: SUBJECTIVE: A 43-year-old male in no acute distress. He is tolerating diet. He feels better, but his white count is elevated. OBJECTIVE: VITAL SIGNS: Last temperature is 98.0, pulse 62, respiratory rate 18, blood pressure 97/64. Apparently, he has had about 70 mL out of his drain last 24 hours. ABDOMEN: The bowel sounds are positive and soft. He has tenderness, drains. LABORATORY DATA: White count today is 22.3, hemoglobin 14.4, platelet count 343. Chemistry shows BUN of 10, creatinine 0.74. ASSESSMENT: 1. Postoperative day #1 laparoscopic appendectomy. 2. Newly diagnosed diabetes. PLAN: The patient is seen and examined. Chart is reviewed. Increase diet and activity as tolerated. Medical management per the primary service. Anthony Garcia DO DR: PAT/kavya JOB# [id number] CC: Dillon Negro M.D.
[2019-02-25 04:33] VITALS: BP 112/64
[2019-02-25 05:22] LABS: BASOPHIL % 0.2 % (0.0-0.2); EOSINOPHIL # 0.1 10^3/uL (0.0-0.2); EOSINOPHIL % 0.8 % (0.0-5.0); HEMOGLOBIN 14.4 g/dL (13.9-16.3); LYMPHOCYTES # 6.9 10^3/uL (1.0-4.8); LYMPHOCYTES % 39.9 % (24.0-44.0); MEAN CELL HGB 30.8 pg (26-34); MEAN CELL HGB CONCENTRATION 32.8 g/dL (33-37); MEAN CORP VOLUME 93.8 fL (78-100); MEAN PLATELET VOLUME 10.1 fL (7.8-11.0); MONOCYTES % 5.7 % (5.0-12.0); NEUTROPHIL # 9.2 10^3/uL (1.8-7.7); NEUTROPHILS % 53.2 % (41.0-85.0); RED CELL DISTRIBUTION WIDTH 13.4 % (11.5-14.5); WHITE BLOOD CELL 17.2 10^3/uL (4.5-11.0)
[2019-02-25 05:37] LABS: CALCIUM 8.3 mg/dL (8.4-10.5); CARBON DIOXIDE 26.4 mmol/L (20.0-32)
[2019-02-25 07:28] VITALS: BP 118/79
[2019-02-25] MEDS: HUMULIN R SQ SCH ×4 (08:11→22:18)
[2019-02-25] MEDS: PEPCID IV SCH ×2 (08:14→21:17)
[2019-02-25] MEDS: LACTATED RINGERS 1,000 ML IV SCH (09:40)
[2019-02-25 11:52] VITALS: BP 120/77
--- NOTE | 2019-02-25 15:33 | PRM.PN ---
Subjective Subjective Date: Feb 25, 2019 Time: 15:20 Subjective Patient feeling better. Leukocytosis persistent. Pain controlled, ambulating, passing gas. VTE VTE Risk Total Score: 1 VTE Risk Score VTE Risk: Score 0-1 = Low Risk (Aggressive mobilization; early ambulation; no VTE prophylaxis required) Score 2: Moderate Risk (Intermittent/Pneumatic Compression Device OR Lovenox/Heparin/Coumadin) Score 3-4: High Risk (Intermittent/Pneumatic Compression Device AND Lovenox/Heparin/Coumadin) Score > or =5: Highest Risk (Intermittent/Pneumatic Compression Device AND Lovenox/Heparin/Coumadin) Review of Systems Allergies: Coded Allergies: No Known Drug Allergies (Verified Allergy, Unknown, 02/22/19) No Active Prescriptions or Reported Meds Objective Vitals and I/O Vital Sign - Last 24 Hours 02/23/19 02/23/19 02/23/19 02/23/19 10:28 10:28 10:37 10:48 Temp 98.8 97.9 98 Pulse 66 57 59 Resp 16 18 24 B/P (MAP) 114/27 (56) 117/72 (87) 106/75 (85) Pulse Ox 100 100 99 O2 Delivery Non-Rebreather Non-Rebreather Nasal [place] O2 Flow Rate 10 10 5 3 02/23/19 02/23/19 02/23/19 02/23/19 10:57 11:08 13:18 13:19 Temp 97.6 98 Pulse 62 58 80 Resp 17 16 16 16 B/P (MAP) 113/71 (85) 107/66 (80) Pulse Ox 95 28 93 93 O2 Delivery Room Air Nasal [place] Nasal Cannula O2 Flow Rate 3 FiO2 21 02/23/19 02/23/19 02/23/19 02/23/19 16:00 18:35 19:17 23:39 Temp 98.6 98.8 Pulse 61 61 86 Resp 18 18 17 B/P (MAP) 116/66 (83) 93/57 (69) Pulse Ox 20 93 92 O2 Delivery Room Air Room Air Room Air Room Air FiO2 21 02/24/19 02/24/19 02/24/19 02/24/19 00:30 04:43 07:20 07:20 Temp 98.1 98.0 98.8 Pulse 65 62 58 Resp 16 18 18 B/P (MAP) 101/44 (63) 95/50 (65) 105/60 (75) Pulse Ox 94 91 97 O2 Delivery Room Air Room Air Room Air Room Air 02/24/19 08:23 Pulse 59 Resp 18 Pulse Ox 97 O2 Delivery Room Air Intake and Output 02/23/19 02/23/19 02/24/19 15:00 23:00 07:00 Intake Total 3840 ml 500 ml 650 ml Output Total 1640 ml 520 ml 860 ml Balance 2200 ml -20 ml -210 ml General: Alert, Oriented X3, Cooperative, No acute distress, Other (language barrier, used language line for communication) HEENT: Atraumatic, PERRLA, EOMI, Mucous membr. moist/pink Neck: Supple, No JVD Lungs: Clear to auscultation, Normal air movement Heart: Normal S1, Normal S2, No murmurs Abdomen: Normal bowel sounds, Soft Extremities: No edema, Normal pulses, No tenderness/swelling Skin: No rashes, No breakdown, No significant lesion Neuro: Normal speech, Strength at 5/5 X4 ext, Normal tone, Sensation intact, Cranial nerves 3-12 NL Psych/Mental Status: Mental status NL, Mood NL All Results(Lab/Rad) Laboratory Tests Test 02/23/19 10:31 02/23/19 11:47 02/23/19 16:41 02/23/19 19:41 Bedside Glucose 191 220 283 321 Test 02/24/19 04:55 White Blood Count 22.3 10^3/uL Red Blood Count 4.63 10^6/uL Hemoglobin 14.4 g/dL Hematocrit 43.1 % Mean Corpuscular Volume 93.1 fL Mean Corpuscular Hemoglobin 31.1 pg Mean Corpuscular Hemoglobin Concent 33.4 g/dL Red Cell Distribution Width 13.1 % Platelet Count 343 10^3/uL Mean Platelet Volume 10.2 fL Neutrophils (%) (Auto) 83.9 % Lymphocytes (%) (Auto) 10.3 % Monocytes (%) (Auto) 5.5 % Neutrophils # (Auto) 18.7 10^3/uL Lymphocytes # (Auto) 2.3 10^3/uL Monocytes # (Auto) 1.2 10^3/uL Absolute Immature Granulocyte (auto 0.07 10^3 u/L Immature Granulocytes % 0.30 % Eosinophils % 0.0 % Basophils % 0.0 % Basophils # 0.0 10^3/uL Eosinophil Count 0.0 10^3/uL Sodium Level 137 mmol/L Potassium Level 3.5 mmol/L Chloride Level 104.0 mmol/L Carbon Dioxide Level 24.6 mmol/L Anion Gap 11.9 Blood Urea Nitrogen 10 mg/dL Creatinine 0.74 mg/dL Estimated GFR () 139.0 BUN/Creatinine Ratio 13.0 Glucose Level 272 mg/dL Hemoglobin A1c 11.7 % Calcium Level 8.4 mg/dL Total Bilirubin 0.5 mg/dL Aspartate Amino Transf (AST/SGOT) 12 U/L Alanine Aminotransferase (ALT/SGPT) 25 U/L Alkaline Phosphatase 90 U/L Total Protein 6.0 g/dL Albumin 2.7 g/dL Globulin 3.3 Current Medications Medications (Trade) Dose Ordered Sig/Tobias Route PRN Reason Start Time Stop Time Status Last Admin Dose Admin Ketorolac Tromethamine (Toradol) 30 mg STAT STAT IV 02/22/19 19:00 02/22/19 22:28 DC 02/22/19 19:37 Ketorolac Tromethamine (Toradol) 30 mg STK-MED ONCE .ROUTE 02/22/19 19:24 02/22/19 19:25 DC Insulin Human Regular (Humulin R) 10 unit STAT ONCE SQ 02/22/19 21:00 02/22/19 22:27 DC 02/22/19 21:45 Piperacillin Sod/ Tazobactam Sod 3.375 gm/Sodium Chloride 100 ml @ 100 mls/hr Q6 IV 02/23/19 00:00 03/25/19 00:00 02/24/19 06:04 Sodium Chloride 1,000 ml @ 0 mls/hr Q0M ONCE IV 02/22/19 22:00 02/22/19 22:27 DC 02/22/19 21:46 Sodium Chloride 100 ml @ ud STK-MED ONCE IV 02/22/19 21:40 02/22/19 21:41 DC Enoxaparin Sodium (Lovenox) 40 mg HS SQ 02/22/19 23:00 03/24/19 22:59 02/23/19 21:02 Famotidine (Pepcid) 20 mg BID IV 02/22/19 23:00 03/24/19 22:59 02/24/19 08:25 Insulin Human Regular (Humulin R) Give 30 minutes before meal ACHS SQ 02/23/19 07:30 03/25/19 07:29 02/24/19 07:35 Dextrose (Dextrose 50%-Water Syringe) 25 ml STAT PRN IV HYPOGLYCEMIA 02/22/19 23:30 03/24/19 23:29 Morphine Sulfate (Morphine Sulfate) 2 mg Q4H PRN IV PAIN 4 - 6 02/22/19 23:30 03/24/19 23:29 02/22/19 23:44 Sodium Chloride 100 ml @ ud STK-MED ONCE IV 02/23/19 05:48 02/23/19 05:50 DC Gentamicin Sulfate/Sodium Chloride 100 ml @ ud STK-MED ONCE IV 02/23/19 07:02 02/23/19 07:04 DC Sodium Chloride 1,000 ml @ ud STK-MED ONCE .ROUTE 02/23/19 07:02 02/23/19 07:04 DC Sodium Chloride (Sodium Chloride) 1,000 ml STK-MED ONCE IR 02/23/19 07:02 02/23/19 07:04 DC Lidocaine HCl (Lidocaine 2% Vial) 500 mg STK-MED ONCE .ROUTE 02/23/19 07:03 02/23/19 07:04 DC Rocuronium [place] (Zemuron) 100 mg STK-MED ONCE IV 02/23/19 07:03 02/23/19 07:04 DC Succinylcholine Chloride (Quelicin) 200 mg STK-MED ONCE .ROUTE 02/23/19 07:03 02/23/19 07:04 DC Fentanyl Citrate (Sublimaze) 100 mcg STK-MED ONCE .ROUTE 02/23/19 07:04 02/23/19 07:06 DC Propofol (Diprivan) 200 mg STK-MED ONCE IV 02/23/19 07:04 02/23/19 07:06 DC Ondansetron HCl (Zofran 4 Mg/2 ml Vial) 4 mg STK-MED ONCE .ROUTE 02/23/19 07:05 02/23/19 07:06 DC Ketorolac Tromethamine (Toradol) 15 mg STK-MED ONCE .ROUTE 02/23/19 07:05 02/23/19 07:06 DC Potassium Chloride 100 ml @ 50 mls/hr OT STAT IV 02/23/19 07:45 02/23/19 09:44 DC Potassium Chloride (Klor-Con 10) 40 meq STAT PO 02/23/19 10:30 03/25/19 10:29 Fentanyl Citrate (Sublimaze) 12.5 mcg Q5MIN PRN IV PAIN 02/23/19 11:00 02/23/19 19:56 DC Promethazine HCl (Phenergan) 6.25 mg PRN PRN IV NAUSEA / VOMITING 02/23/19 11:00 02/23/19 19:56 DC Albuterol Sulfate (Ventolin) 2.5 mg OT PRN IH WHEEZING 02/23/19 11:00 02/23/19 19:56 DC Ondansetron HCl (Zofran 4 Mg/2 ml Vial) 4 mg Q4H PRN IV NAUSEA / VOMITING 02/23/19 11:00 03/25/19 10:59 Potassium Chloride (Potassium Chloride) 40 meq STAT STAT PO 02/23/19 11:45 02/23/19 11:48 DC 02/23/19 12:20 Course Sepsis Screening Results: Posi: NEGATIVE Sepsis Qualifier/Stage: NO DEFINITE RISK Duration or Total Time Spent w: 3 hours Vitals & review Data Vital Sign - Last 24 Hours 02/22/19 02/22/19 02/22/19 18:09 18:09 18:32 Temp 99.7 99.7 99.7 Pulse 16 83 83 Resp 16 16 16 B/P (MAP) 134/75 (94) Pulse Ox 96 96 O2 Delivery Room Air Room Air Laboratory Tests Test 02/22/19 19:00 02/22/19 20:40 White Blood Count 20.3 10^3/uL Red Blood Count 5.20 10^6/uL Hemoglobin 16.2 g/dL Hematocrit 47.4 % Mean Corpuscular Volume 91.2 fL Mean Corpuscular Hemoglobin 31.2 pg Mean Corpuscular Hemoglobin Concent 34.2 g/dL Red Cell Distribution Width 12.7 % Platelet Count 371 10^3/uL Mean Platelet Volume 9.8 fL Neutrophils (%) (Auto) 82.5 % Lymphocytes (%) (Auto) 11.4 % Monocytes (%) (Auto) 5.0 % Neutrophils # (Auto) 16.8 10^3/uL Lymphocytes # (Auto) 2.3 10^3/uL Monocytes # (Auto) 1.0 10^3/uL Absolute Immature Granulocyte (auto 0.05 10^3 u/L Immature Granulocytes % 0.20 % Eosinophils % 0.8 % Basophils % 0.1 % Basophils # 0.0 10^3/uL Eosinophil Count 0.2 10^3/uL Sodium Level 137 mmol/L Potassium Level 3.5 mmol/L Chloride Level 100.0 mmol/L Carbon Dioxide Level 27.4 mmol/L Anion Gap 13.1 Blood Urea Nitrogen 11 mg/dL Creatinine 0.87 mg/dL Estimated GFR () 115.3 BUN/Creatinine Ratio 12.0 Glucose Level 349 mg/dL Calcium Level 9.4 mg/dL Total Bilirubin 0.4 mg/dL Aspartate Amino Transf (AST/SGOT) 21 U/L Alanine Aminotransferase (ALT/SGPT) 31 U/L Alkaline Phosphatase 112 U/L Total Protein 7.3 g/dL Albumin 3.7 g/dL Globulin 3.6 Amylase Level 26 U/L Lipase 110 U/L Helicobacter pylori Screen NEGATIVE Urine Collection Type UNKNOWN Urine Color YELLOW Urine Appearance CLEAR Urine Bilirubin NEGATIVE MG/DL Urine Ketones 15 mg/dL Urine Specific [place] 1.010 Urine pH 7 Urine Protein NEGATIVE Urine Urobilinogen NORMAL Urine Nitrate NEGATIVE Urine Leukocyte Esterase NEGATIVE Urine Blood NEGATIVE Urine Glucose 1000 Current Medications Medications (Trade) Dose Ordered Sig/Tobias PRN Reason Start Time Stop Time Status Last Admin Ketorolac Tromethamine (Toradol) 30 mg STAT STAT 02/22/19 19:00 02/22/19 19:01 UNV 02/22/19 19:37 LEVEL 1 SEPSIS INFECTION CRITE: ABX Therapy, Abdominal Pain, Recent Invasive Procedure LEVEL 2-SIRS (LIST ALL THAT AP: [id number] Cardiovascular Evidence: Not Assessed or None Hematologic Evidence: None/Not assessed Hepatic Evidence: None/Not assessed Metabolic Evidence: None/Not assessed Neurological Evidence: None/Not assessed Respiratory Evidence: None/Not assessed Renal Evidence: None/Not assessed O2 Sat by Pulse Oximetry: 95 Oxygen Flow Rate: 3 Assessment/Plan Assessment/Plan Assessment/Plan 1. Acute Appendicitis: Cont monitor CHRISTOPHER output. Cont IV abx. Recheck CBC in AM. 2. DM with Hyperglycemia: started Metformin today to monitor tolerance. Cont SSI to cover. Patient might require Insulin on d/c but has very unhealthy eating habits. Oral hypoglycemics with lifestyle modifications likely to suffice. 3. PPx: Sandi Palmer MICAH R MD Feb 25, 2019 15:33
[2019-02-25 16:01] LABS: BASOPHIL # 0.1 10^3/uL (0.0-0.1); BASOPHIL % 0.3 % (0.0-0.2); EOSINOPHIL # 0.2 10^3/uL (0.0-0.2); EOSINOPHIL % 1.3 % (0.0-5.0); HEMOGLOBIN 14.4 g/dL (13.9-16.3); LYMPHOCYTES % 39.9 % (24.0-44.0); MEAN CELL HGB CONCENTRATION 33.3 g/dL (33-37); MEAN CORP VOLUME 93.1 fL (78-100); MEAN PLATELET VOLUME 9.8 fL (7.8-11.0); MONOCYTES # 1.2 10^3/uL (0.3-0.8); MONOCYTES % 8.3 % (5.0-12.0); NEUTROPHIL # 7.5 10^3/uL (1.8-7.7); RED CELL DISTRIBUTION WIDTH 13.2 % (11.5-14.5)
[2019-02-25 16:22] LABS: CALCIUM 8.7 mg/dL (8.4-10.5); CARBON DIOXIDE 29.8 mmol/L (20.0-32)
[2019-02-25 17:43] VITALS: BP 117/75
[2019-02-25 20:00] VITALS: BP 105/70
[2019-02-25] MEDS: GLUCOPHAGE PO SCH (21:16)
[2019-02-25] MEDS: LOVENOX SQ SCH (21:16)
[2019-02-25] MEDS ORDERED: LACTATED RINGERS 1,000 ML ONE (21:17)
[2019-02-26 00:13] VITALS: BP 113/66
--- NOTE | 2019-02-26 04:26 | PNH ---
DATE: SUBJECTIVE: A 43-year-old male, in no acute distress, seen in his room. He reports no abdominal pain. He is tolerating some diet. OBJECTIVE: VITAL SIGNS: Last temperature is 98.2, pulse 61, respiratory rate 18, blood pressure 120/77. ABDOMEN: Today, the bowel sounds are positive and soft. He has no significant tenderness on exam today. His drain output was apparently 80 mL for yesterday and he has already had 70 out of serosanguineous fluid today. LABORATORY DATA: Today showed white count 17.2, hemoglobin 14.4, platelet count 376. Chemistry shows BUN of 14, creatinine 0.90, his potassium is 3.5, his blood sugar is 250, albumin is improved to 3.2. ASSESSMENT: 1. Status post laparoscopic appendectomy for acute appendicitis. 2. New onset diabetes. PLAN: The patient is seen and examined. The chart is reviewed. As the patient has persistent postoperative leukocytosis, it is unclear if this is from surgery or from the diabetes as such he is remaining on IV antibiotics under the care of the hospitalist service. He is advised to increase diet as tolerated. Prior to discharge, he should have his drain removed unless there is some acute change. Anthony Garcia DO DR: PAT/kavya JOB# [id number] CC: Dillon Negro M.D.
[2019-02-26 04:37] VITALS: BP 100/64
[2019-02-26 07:35] VITALS: BP 119/68
[2019-02-26 08:11] LABS: BASOPHIL % 0.3 % (0.0-0.2); EOSINOPHIL # 0.3 10^3/uL (0.0-0.2); HEMOGLOBIN 15.7 g/dL (13.9-16.3); LYMPHOCYTES % 27.8 % (24.0-44.0); MEAN CELL HGB 30.9 pg (26-34); MEAN CELL HGB CONCENTRATION 33.3 g/dL (33-37); MEAN CORP VOLUME 92.7 fL (78-100); MEAN PLATELET VOLUME 9.8 fL (7.8-11.0); MONOCYTES # 1.2 10^3/uL (0.3-0.8); MONOCYTES % 8.5 % (5.0-12.0); NEUTROPHIL # 8.7 10^3/uL (1.8-7.7); NEUTROPHILS % 61.1 % (41.0-85.0); RED CELL DISTRIBUTION WIDTH 13.1 % (11.5-14.5); WHITE BLOOD CELL 14.3 10^3/uL (4.5-11.0)
[2019-02-26] MEDS: ZOSYN 3.375 GM 3.375 GM in NS 100ML 100 ML IV SCH ×3 (08:15→13:58)
[2019-02-26] MEDS: HUMULIN R SQ SCH ×2 (08:16→12:08)
[2019-02-26] MEDS ORDERED: NS 250ML 250 ML IV ONE (08:18)
[2019-02-26] MEDS: GLUCOPHAGE PO SCH (08:59)
[2019-02-26] MEDS: PEPCID IV SCH (08:59)
[2019-02-26] MEDS ORDERED: METF500T PO (11:21)
--- NOTE | 2019-02-26 11:28 | PRM.DC ---
Discharge Summary Date of Discharge: Feb 26, 2019 Time of Request to Discharge: 11:21 Reason for Visit: abdominal pain, fever, chills Hospital Course Patient underwent uneventful appendectomy with Dr. Garcia on 02-23 as well as drain placement, with improvement in symptoms and labs. He was maintained on Zosyn until discharge. Incidental diabetes was identified and treatment begun on Metformin. He is feeling appropriate for discharge today with stable exam and wants to go home. He will followup locally. General: Alert, Oriented X3, No acute distress Lungs: Clear to auscultation Heart: Regular rate Abdomen: Normal bowel sounds, Other (appropriate postoperative tenderness) Skin: No rashes, No breakdown Scheduled Metformin Hcl (Glucophage), 500 MG PO BID Sepsis Evaluation @ Discharge Vital Sign - Last 24 Hours 02/22/19 02/22/19 02/22/19 18:09 18:09 18:32 Temp 99.7 99.7 99.7 Pulse 16 83 83 Resp 16 16 16 B/P (MAP) 134/75 (94) Pulse Ox 96 96 O2 Delivery Room Air Room Air Laboratory Tests Test 02/22/19 19:00 02/22/19 20:40 White Blood Count 20.3 10^3/uL Red Blood Count 5.20 10^6/uL Hemoglobin 16.2 g/dL Hematocrit 47.4 % Mean Corpuscular Volume 91.2 fL Mean Corpuscular Hemoglobin 31.2 pg Mean Corpuscular Hemoglobin Concent 34.2 g/dL Red Cell Distribution Width 12.7 % Platelet Count 371 10^3/uL Mean Platelet Volume 9.8 fL Neutrophils (%) (Auto) 82.5 % Lymphocytes (%) (Auto) 11.4 % Monocytes (%) (Auto) 5.0 % Neutrophils # (Auto) 16.8 10^3/uL Lymphocytes # (Auto) 2.3 10^3/uL Monocytes # (Auto) 1.0 10^3/uL Absolute Immature Granulocyte (auto 0.05 10^3 u/L Immature Granulocytes % 0.20 % Eosinophils % 0.8 % Basophils % 0.1 % Basophils # 0.0 10^3/uL Eosinophil Count 0.2 10^3/uL Sodium Level 137 mmol/L Potassium Level 3.5 mmol/L Chloride Level 100.0 mmol/L Carbon Dioxide Level 27.4 mmol/L Anion Gap 13.1 Blood Urea Nitrogen 11 mg/dL Creatinine 0.87 mg/dL Estimated GFR () 115.3 BUN/Creatinine Ratio 12.0 Glucose Level 349 mg/dL Calcium Level 9.4 mg/dL Total Bilirubin 0.4 mg/dL Aspartate Amino Transf (AST/SGOT) 21 U/L Alanine Aminotransferase (ALT/SGPT) 31 U/L Alkaline Phosphatase 112 U/L Total Protein 7.3 g/dL Albumin 3.7 g/dL Globulin 3.6 Amylase Level 26 U/L Lipase 110 U/L Helicobacter pylori Screen NEGATIVE Urine Collection Type UNKNOWN Urine Color YELLOW Urine Appearance CLEAR Urine Bilirubin NEGATIVE MG/DL Urine Ketones 15 mg/dL Urine Specific [place] 1.010 Urine pH 7 Urine Protein NEGATIVE Urine Urobilinogen NORMAL Urine Nitrate NEGATIVE Urine Leukocyte Esterase NEGATIVE Urine Blood NEGATIVE Urine Glucose 1000 Current Medications Medications (Trade) Dose Ordered Sig/Tobias PRN Reason Start Time Stop Time Status Last Admin Ketorolac Tromethamine (Toradol) 30 mg STAT STAT 02/22/19 19:00 02/22/19 19:01 UNV 02/22/19 19:37 Course Sepsis Screening Results: Posi: NEGATIVE Sepsis Qualifier/Stage: NO DEFINITE RISK Duration or Total Time Spent w: 3 hours Vitals & review Data Vital Sign - Last 24 Hours 02/22/19 02/22/19 02/22/19 18:09 18:09 18:32 Temp 99.7 99.7 99.7 Pulse 16 83 83 Resp 16 16 16 B/P (MAP) 134/75 (94) Pulse Ox 96 96 O2 Delivery Room Air Room Air Laboratory Tests Test 02/22/19 19:00 02/22/19 20:40 White Blood Count 20.3 10^3/uL Red Blood Count 5.20 10^6/uL Hemoglobin 16.2 g/dL Hematocrit 47.4 % Mean Corpuscular Volume 91.2 fL Mean Corpuscular Hemoglobin 31.2 pg Mean Corpuscular Hemoglobin Concent 34.2 g/dL Red Cell Distribution Width 12.7 % Platelet Count 371 10^3/uL Mean Platelet Volume 9.8 fL Neutrophils (%) (Auto) 82.5 % Lymphocytes (%) (Auto) 11.4 % Monocytes (%) (Auto) 5.0 % Neutrophils # (Auto) 16.8 10^3/uL Lymphocytes # (Auto) 2.3 10^3/uL Monocytes # (Auto) 1.0 10^3/uL Absolute Immature Granulocyte (auto 0.05 10^3 u/L Immature Granulocytes % 0.20 % Eosinophils % 0.8 % Basophils % 0.1 % Basophils # 0.0 10^3/uL Eosinophil Count 0.2 10^3/uL Sodium Level 137 mmol/L Potassium Level 3.5 mmol/L Chloride Level 100.0 mmol/L Carbon Dioxide Level 27.4 mmol/L Anion Gap 13.1 Blood Urea Nitrogen 11 mg/dL Creatinine 0.87 mg/dL Estimated GFR () 115.3 BUN/Creatinine Ratio 12.0 Glucose Level 349 mg/dL Calcium Level 9.4 mg/dL Total Bilirubin 0.4 mg/dL Aspartate Amino Transf (AST/SGOT) 21 U/L Alanine Aminotransferase (ALT/SGPT) 31 U/L Alkaline Phosphatase 112 U/L Total Protein 7.3 g/dL Albumin 3.7 g/dL Globulin 3.6 Amylase Level 26 U/L Lipase 110 U/L Helicobacter pylori Screen NEGATIVE Urine Collection Type UNKNOWN Urine Color YELLOW Urine Appearance CLEAR Urine Bilirubin NEGATIVE MG/DL Urine Ketones 15 mg/dL Urine Specific [place] 1.010 Urine pH 7 Urine Protein NEGATIVE Urine Urobilinogen NORMAL Urine Nitrate NEGATIVE Urine Leukocyte Esterase NEGATIVE Urine Blood NEGATIVE Urine Glucose 1000 Current Medications Medications (Trade) Dose Ordered Sig/Tobias PRN Reason Start Time Stop Time Status Last Admin Ketorolac Tromethamine (Toradol) 30 mg STAT STAT 02/22/19 19:00 02/22/19 19:01 UNV 02/22/19 19:37 LEVEL 1 SEPSIS INFECTION CRITE: ABX Therapy, Abdominal Pain, Recent Invasive Procedure LEVEL 2-SIRS (LIST ALL THAT AP: [id number] Cardiovascular Evidence: Not Assessed or None Hematologic Evidence: None/Not assessed Hepatic Evidence: None/Not assessed Metabolic Evidence: None/Not assessed Neurological Evidence: None/Not assessed Respiratory Evidence: None/Not assessed Renal Evidence: None/Not assessed O2 Sat by Pulse Oximetry: 95 Oxygen Flow Rate: 3 SYDNIE ALFARO MD Feb 26, 2019 11:28
--- NOTE | 2019-02-26 11:33 | NUR ---
CHRISTOPHER DRAIN CHRISTOPHER DRAIN REMOVED ASEPTIC TECHNIQUE. 5 ML SEROUS FLUID PRESENT. TROCAR SITE COVERED WITH BANDAID. PT TOLERATED WELL.
[2019-02-26 11:35] VITALS: BP 105/60
--- NOTE | 2019-02-26 15:20 | NUR ---
DISCHARGE PT WAS GIVEN A GLUCOMETER BY CASE MANAGEMENT. AT DISCHARGE PT WAS GIVEN INSTRUCTIONS ON HOW TO USE IT AND TO USE THE GLUCOMETER AT BREAKFAST, LUNCH, DINNER AND BEDTIME. PT WAS TOLD TO KEEP A JOURNAL LISTING ALL BLOOD SUGARS TAKEN AND AT WHAT TIME. PT WAS GIVEN EDUCATION ON NEW MEDICATION DOSING AND SIDE EFFECTS. PT WAS EDUCATED ON CONTINUING A DIABETIC DIET. PT WAS EDUCATED TO DO NO LIFTING, PULLING OF STRAINING, AND TO GO FOR HIS FOLLOW UP APPOINTMENT WITH DR. WAYNE. PT WAS EDUCATED ON CONTINUING TO AMBULATE AND TO USE OTC TYLENOL FOR ANY PAIN. PT VERBALIZED UNDERSTANDING TO ALL EDUCATION. IV DC, TIP INTACT. PT AMBULATED OFF UNIT WITH SPOUSE.
[2019-02-26 15:35] VITALS: BP 105/60
[2019-02-26 15:41] VITALS: BP 105/60
== END 2019-02-26 15:20 | disposition home or self-care (01) | DRG 343 ==
LOC: ER 18:09 → MS 21:41
PROVIDERS: ADMIT Family Medicine; ATTEND Family Medicine
PROC: 0DTJ4ZZ Resection of Appendix, Percutaneous Endoscopic Approach (ICD-10-PCS; principal; 2019-02-23 09:05)
DX: K35.30 Acute appendicitis with localized peritonitis, without perforation or gangrene (principal); E11.65 Type 2 diabetes mellitus with hyperglycemia; E87.6 Hypokalemia; K66.0 Peritoneal adhesions (postprocedural) (postinfection); E86.0 Dehydration; Z79.899 Other long term (current) drug therapy; Z79.4 Long term (current) use of insulin; Z87.891 Personal history of nicotine dependence
CPT/HCPCS: 36415; 74177; 80053; 81002; 82150; 82948; 83036; 83690; 85025; 85610; 85730; 86677; 93005; 99285; A4217; G0378; J0330; J1100; J1650; J1815; J1885; J2001; J2250; J2270; J2405; J2543; J3010; J3490; J7030; J7050; J7120; Q9963; Q9965; 88302; C9290; J1580; J3480